=== PATIENT | male | born 1945 | race Caucasian/White ===

== ENCOUNTER → 2024-03-01 11:21 | Outpatient (REF) | payer MEDICARE, SELFPAY | LOC: RCS 11:21 | PROVIDERS: ATTENDING PHYSICIAN Nurse Practitioner Family; FAMILY PHYSICIAN Internal Medicine Geriatric Medicine | DX: M25.561 Pain in right knee (principal); E78.5 Hyperlipidemia, unspecified; R42 Dizziness and giddiness; I10 Essential (primary) hypertension | CPT/HCPCS: 73564; 93005 ==

== ENCOUNTER → 2024-03-15 16:44 | Outpatient (REF) | payer MEDICARE, SELFPAY | LOC: RCS 16:44 | PROVIDERS: ATTENDING PHYSICIAN Nurse Practitioner Family; FAMILY PHYSICIAN Internal Medicine Geriatric Medicine | DX: R42 Dizziness and giddiness (principal); I10 Essential (primary) hypertension | CPT/HCPCS: 93306 ==

== ENCOUNTER → 2024-03-29 19:33 | Outpatient (REF) | payer MEDICARE, SELFPAY | LOC: MRI 19:33 | PROVIDERS: ATTENDING PHYSICIAN Orthopaedic Surgery; FAMILY PHYSICIAN Internal Medicine Geriatric Medicine | DX: M25.561 Pain in right knee (principal) | CPT/HCPCS: 73721 ==

== ENCOUNTER 2024-12-31 10:11 | Emergency (ER) | payer MEDICARE, SELFPAY ==
[2024-12-31 10:14] VITALS: BP 178/83
[2024-12-31 11:02] LABS: Urine Character Bloody (Clear)
--- NOTE | 2024-12-31 11:15 | ED.GENMED ---
History of Present Illness
General
Chief Complaint: Urinary Symptoms
Source: patient and spouse
Exam Limitations: none
Time Seen by Provider: 12/31/24 10:59
Nursing documentation reviewed up to this point in time: agreed with
History of Present Illness
History of Present Illness:
Note:
CHIEF COMPLAINT(S)
Blood in urine, increased frequency of urination, abdominal pain.
HISTORY OF PRESENT ILLNESS
The patient is a 79-year-old male presenting with hematuria and increased urinary frequency, which he describes as more frequent than his usual two to three times per night. He denies any dysuria. He reports experiencing abdominal pain, localized in
the left lower quadrant, which he describes as mild. The patient is not on any anticoagulants. He recalls no procedures involving the bladder or urethra, such as cystoscopy. There is a history of prior significant surgical intervention involving the
genitourinary tract.
PAST MEDICAL AND SURGICAL HISTORY
The patient has a history of surgical intervention on the genitourinary system, specifically noting a connection of the restroom to a hole due to a missing external sphincter. The patient has a non-functioning right kidney, identified at as
underdeveloped. 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
PHYSICAL EXAM
General: Alert, no acute distress.
Skin: Warm, dry.
Head: Normocephalic, atraumatic.
Neck: Supple, trachea midline.
Eyes, Ears, Nose, Mouth, and Throat: Oral mucosa moist.
Cardiovascular: Normal peripheral perfusion, no edema.
Respiratory: Respirations are non-labored.
Gastrointestinal: Non-distended abdomen, reports pain in the left lower quadrant.
Back: Normal range of motion, normal alignment.
Musculoskeletal: Normal ROM, normal strength.
Neurological: Alert and oriented to person, place, time, and situation, no focal neurological deficit observed.
Psychiatric: Cooperative, appropriate mood and affect.
PROBLEM LIST
Acute Problems:
- Hematuria
- Increased urinary frequency
- Abdominal pain
Chronic Problems:
- Non-functioning right kidney
- History of melanoma
PLAN
- Check kidney function tests.
- Perform a CT scan to evaluate kidney structure and rule out stones.
DIFFERENTIAL DIAGNOSIS
The Differential Diagnosis includes, in no particular order and is not limited to:
- Urinary tract infection
- Nephrolithiasis
- Bladder cancer
- Renal cell carcinoma
- Prostatitis
- Benign prostatic hyperplasia
- Glomerulonephritis
- Trauma
- Drug-induced hematuria
- Polycystic kidney disease
CARE-UPDATE
12/31/24 - 14:31
Patient continues to exhibit hydrouterinephrosis and hematuria without signs of UTI. Consulted with Dr. Bowen, who suggested outpatient follow-up with a urologist. The patient is planned for discharge. Treatment to focus on symptom management and
monitoring until urologist evaluation.
Disposition:
SUMMARY OF ENCOUNTER
The patient, a 79-year-old male, presented to the emergency department with hematuria, increased urinary frequency, and mild left lower quadrant abdominal pain. The patient has a history of significant surgical intervention involving the
genitourinary system, a non-functioning right kidney, and a history of melanoma. After evaluation and symptom management, the patient was deemed stable for discharge. Hydrouterinephrosis was noted without signs of urinary tract infection.
DISPOSITION
Discharge home.
PLAN
The patient should follow up with a urologist as an outpatient for further evaluation and management. Continue symptom management and monitoring until the urologist evaluation is completed.
FOLLOW-UP INSTRUCTIONS
The patient has been advised to arrange an appointment with a urologist for further evaluation and follow-up care.
MEDICAL DECISION MAKING
-Complexity of Data Reviewed: Chronic conditions affecting care including non-functioning right kidney and history of melanoma. Differential diagnosis considerations included urinary tract infection, nephrolithiasis, bladder cancer, renal cell
carcinoma, prostatitis, benign prostatic hyperplasia, glomerulonephritis, trauma, drug-induced hematuria, and polycystic kidney disease.
DATA
Category 3
Discussion of management with other physician, healthcare provider: Consultation with Dr. Bowen, who recommended outpatient follow-up with a urologist.
-Risk:
Consideration of Admission/Observation: Escalation of care including admission/observation was considered given the complexity and risk of the patients presenting complaint, exam findings, and/or their underlying comorbidities. However, ultimately
the patient is safe for outpatient management with close follow-up. Reasoning: Work-up reassuring, does not reveal any acute life/organ-threatening processes, patients symptoms well controlled upon reevaluation, reexamination is reassuring, vitals
are stable, patient agreeable with discharge, reliable for follow-up.
DIAGNOSIS
Hematuria (R31.9)
Hydronephrosis (N13.30)
Phy Exam
Physical Exam
Physical Exam:
.
Course
Orders/Labs/Results
Orders:
Orders
12/31/24 10:19
Urinalysis Reflex To Culture Urgent
Date Specimen was Collected: 12/31/24
Time Specimen was Collected: 10:14
Urine Microscopic Reflex Cult Urgent
12/31/24 11:16
CT Abd/pel Without Iv Or Oral Urgent
Comment:
Reason For Exam: left flank pain
12/31/24 11:19
IV Insert/Care/Rem.- Treatment PRN
12/31/24 11:29
Complete Blood Count/With Diff Urgent
Comprehensive Metabolic Panel Urgent
12/31/24 14:05
Ondansetron Injectable [Zofran] 4 mg IV NOW STA
Abnormal Lab Results
12/31/24 12/31/24
10:19 11:29
RBC 4.57 L 10^6/uL
(4.70-6.10)
MCV 95.4 H fL
(80.0-94.0)
MCH 32.2 H pg
(27.0-31.0)
MPV 10.8 H fL
(7.4-10.4)
Abs Immat Gran (auto) 0.1 H 10^3/uL
(0-0.05)
Absolute Neuts (auto) 7.3 H 10^3/uL
(1.4-6.5)
Absolute Lymphs (auto) 1.0 L 10^3/uL
(1.2-3.4)
Absolute Monos (auto) 1.0 H 10^3/uL
(0.1-0.6)
Immature Gran % 1.2 H %
(0-0.5)
Neutrophils % 77.5 H %
(42.2-75.2)
Lymphocytes % 10.4 L %
(20.5-51.1)
Monocytes % 10.1 H %
(1.7-9.3)
Carbon Dioxide 32 H mmol/L
(22-30)
Glucose 104 H mg/dl
(70-99)
Ur Occult Blood Reflex 4+ A
(Negative)
Urine RBC >100 A /HPF
(0-2)
Urine Albumin (Reflex) 4+ A
(Neg - Trace)
12/31/24 11:29
12/31/24 11:29
Vital Signs
Initial and Last Documented VS:
Initial Vital Signs
Temp Pulse Resp BP Pulse Ox
98.7 F 84 17 178/83 99
12/31/24 10:14 12/31/24 10:14 12/31/24 10:14 12/31/24 10:14 12/31/24 10:14
Last Documented Vital Signs
Temp Pulse Resp BP Pulse Ox
98.7 F 84 17 165/84 96
12/31/24 10:14 12/31/24 10:14 12/31/24 10:14 12/31/24 14:01 12/31/24 13:36
*Pulse Oximetry
SaO2: 99
Oxygen Mode of Delivery: Room air
Patient hypoxic: no
*Critical Care Note
Total Time (30-74mins, 75-104mins- exclusive of procedures): Not Applicable
ED Attending Note
-
Portions of this chart may have been created with voice recognition software.� Occasional wrong word or��sound alike� substitutions may have occurred due to the inherent limitations of voice recognition software.
Discharge Plan
Departure
Patient Disposition: Home (Routine Discharge)
Date of Disposition: 12/31/24
Time of Disposition: 14:03
Patient with high blood pressure during this ER visit?: Yes
Condition: Good
Discharge Problem:
Hematuria, Hydroureteronephrosis
Instructions: Hydronephrosis in adults, Blood in the Urine (Hematuria), Adult (DC), BLOOD PRESSURE
Prescriptions:
New
cephalexin 500 mg capsule
500 mg PO BID 7 Days Qty: 14 0RF
Referrals:
Charlie Corral MD [Family Provider, Internal Medicine]
Pete Carbajal MD [Active, Urology] - Call in 1-3 days for appt
Interventions
Interventions:
*Risk Screen - Suicide Last Done: 12/31/24 10:17
*General Assessment Last Done: 12/31/24 10:17
*Neglect/Abuse Screening Last Done: 12/31/24 10:17
*ED- Fall Risk Assessment Last Done: 12/31/24 11:22
*ED COVID-19 Vaccine History Last Done: 12/31/24 10:17
*Nursing Disposition Last Done: 12/31/24 14:14
ED-Male Genitourinary Assessment Last Done: 12/31/24 11:22
Discharge Date and Time
Discharge Date/Time: 12/31/24 14:14
Print Language: HUNGARIAN
[2024-12-31 11:17] LABS: Urine Red Blood Cell >100 /HPF (0-2)
[2024-12-31 11:21] VITALS: BMI 26.3
[2024-12-31 11:23] VITALS: BP 162/74
[2024-12-31 11:43] LABS: Hematocrit 43.6 % (39.0-52.0); Hemoglobin 14.7 g/dL (13.0-18.0); Mean Corp Hgb Conc. 33.7 g/dL (33.0-37.0); Mean Corpuscular Volume 95.4 fL (80.0-94.0); Nucleated Red Blood Cells % 0 % (-); Platelet Count 140 10^3/uL (130-400); Red Cell Dist. Width 13.5 % (11.5-14.5)
[2024-12-31 12:00] VITALS: BP 159/68
[2024-12-31 12:00] LABS: ALT (SGPT) 28 U/L (0-50); AST (SGOT) 24 U/L (17-59); Albumin 4.3 g/dl (3.5-5.0); Alkaline Phosphatase 72 U/L (38-126); Blood Urea Nitrogen 13 mg/dl (9-20); Calcium 9.5 mg/dl (8.4-10.2); Carbon Dioxide 32 mmol/L (22-30); Chloride 106 mmol/L (98-107); Estimated Creatinine Clearance 70 ml/min; Glucose 104 mg/dl (70-99); Potassium 4.7 mmol/L (3.5-5.1); Sodium 141 mmol/L (135-145); Total Protein 7.1 g/dl (6.3-8.2); eGFR > 60.00
[2024-12-31 13:00] VITALS: BP 166/73
[2024-12-31 14:01] VITALS: BP 165/84
== END 2024-12-31 14:14 | disposition home or self-care (01) ==
LOC: EMR 10:11
PROVIDERS: EMERGENCY PHYSICIAN Emergency Medicine; FAMILY PHYSICIAN Internal Medicine Geriatric Medicine
DX: R31.9 Hematuria, unspecified (principal); N13.30 Unspecified hydronephrosis; Q60.0 Renal agenesis, unilateral; Z85.820 Personal history of malignant melanoma of skin
CPT/HCPCS: 99284; 74176; 80053; 81003; 81015; 85025